=== PATIENT | male | born 1990 | race African-American/Black ===

== ENCOUNTER 2016-05-30 12:11 | Emergency (ER) | payer MEDICARE, OTHER, MEDICAID ==
[~2016-05-30] VITALS: Ht 177.8 cm; Wt 87.0 kg
[~2016-05-30 12:11] MED LIST: LEVA750T PO; OXYC1CAP PO
[2016-05-30 12:14] VITALS: BP 132/64; PULSE 78; RESP 15; TEMP 98.2; O2SAT 96
--- NOTE | 2016-05-30 12:18 | PD ---
Physical Exam Time Seen by Provider: 12:16 Narrative 26yo M w/ c/o sickle cell crisis. Onset Friday. Pain in BUE and BLE. Denies fever, vomiting. Patient stable. Patient seen in triage. Awaiting bed placement. Data Data Last Documented VS Vital Signs Date Time Temp Pulse Resp B/P Pulse Ox O2 Delivery O2 Flow Rate FiO2 05/30/16 12:14 98.2 78 15 132/64 96 MDM Supervised Visit with REG: Aleta Galo May 30, 2016 12:18
[2016-05-30 12:25] VITALS: BP 141/62; PULSE 77; RESP 18; O2SAT 95
[2016-05-30] MEDS ORDERED: SODIUM CHLOR 0.9% 1000 ML INJ 1,000 ML IV ONE ×2 (12:35→13:30)
--- NOTE | 2016-05-30 12:35 | PD ---
HPI Chief Complaint: Sickle Cell Time Seen by Provider: 12:35 Travel History International Travel<30 days: No Contact w/Intl Traveler<30days: No Traveled to known affect area: No History of Present Illness HPI 26-year-old male with history of sickle cell disease presents to emergency department for evaluation of what he is reporting as a sickle cell crisis. Patient states he has had joint and extremity pain for the last 2-3 days. Denies any fever or chills. No injury. No chest pain or tightness. No difficulty breathing. No abdominal pain, nausea, vomiting. He has no other symptoms to report. States this is typical of his sickle cell crisis. PFSH Past Medical History Hx Anticoagulant Therapy: No Asthma: No Blood Disorders: No Anxiety: No Depression: No Heart Rhythm Problems: No Cancer: No Cardiovascular Problems: No High Cholesterol: No Chemotherapy: No Chest Pain: No Congestive Heart Failure: No COPD: No Cerebrovascular Accident: No Diabetes: No Diminished Hearing: No Endocrine: No Gastrointestinal Disorders: No Genitourinary: No Heparin Induced Thrombocytopen: No Hypertension: No Immune Disorder: No Implanted Vascular Access Dvce: No Musculoskeletal: No Neurologic: No Psychiatric: No Reproductive: No Respiratory: No Immunizations Current: Yes Radiation Therapy: No Sickle Cell Disease: Yes Sleep Apnea: No Past Surgical History AICD: No Arteriovenous Shunt: No Hysterectomy: No Insulin Pump: No Joint Replacement: No Pacemaker: No Tonsillectomy: Yes Other Surgery: No Social History Alcohol Use: Yes (1-2 cups of liquor every other day ) Tobacco Use: No Substance Use: No Allergies-Medications (Allergen,Severity, Reaction): Coded Allergies: Penicillin (Verified Allergy, Severe, Hives, 05/30/16) Reported Meds & Prescriptions Reported Meds & Active Scripts Active Reported Oxycodone (Oxycodone HCl) 5 Mg Cap 5 Mg PO Q4H PRN Review of Systems Except as stated in HPI: all other systems reviewed are Neg Physical Exam Narrative GENERAL: Well-nourished male patient, ambulatory and in no acute distress SKIN: Focused skin assessment warm/dry. HEAD: Atraumatic. Normocephalic. EYES: Pupils equal and round. No scleral icterus. No injection or drainage. ENT: No nasal bleeding or discharge. Mucous membranes pink and moist. NECK: Trachea midline. No JVD. CARDIOVASCULAR: Regular rate and rhythm. No murmur appreciated. RESPIRATORY: No accessory muscle use. Clear to auscultation. Breath sounds equal bilaterally. GASTROINTESTINAL: Abdomen soft, non-tender, nondistended. Hepatic and splenic margins not palpable. MUSCULOSKELETAL: No obvious deformities. No clubbing. No cyanosis. No edema. NEUROLOGICAL: Awake and alert. No obvious cranial nerve deficits. Motor grossly within normal limits. Normal speech. PSYCHIATRIC: Appropriate mood and affect; insight and judgment normal. Data Data Last Documented VS Vital Signs Date Time Temp Pulse Resp B/P Pulse Ox O2 Delivery O2 Flow Rate FiO2 05/30/16 12:36 18 99 Room Air 05/30/16 12:25 77 141/62 05/30/16 12:14 98.2 Orders Basic Metabolic Panel (Bmp) (05/30/16 12:35) Complete Blood Count With Diff (05/30/16 12:35) Retic Count (05/30/16 12:35) Ecg Monitoring (05/30/16 12:35) Iv Access Insert/Monitor (05/30/16 12:35) Oximetry (05/30/16 12:35) Ketorolac Inj (Toradol Inj) (05/30/16 12:45) Sodium Chloride 0.9% Flush (Ns Flush) (05/30/16 12:45) Sodium Chlor 0.9% 1000 Ml Inj (Ns 1000 M (05/30/16 12:35) Hydromorphone Pf Inj (Dilaudid Pf Inj) (05/30/16 13:30) Diphenhydramine Inj (Benadryl Inj) (05/30/16 13:30) Sodium Chlor 0.9% 1000 Ml Inj (Ns 1000 M (05/30/16 13:30) Labs Laboratory Tests Test 05/30/16 12:43 White Blood Count 10.9 TH/MM3 Red Blood Count 4.64 MIL/MM3 Hemoglobin 10.9 GM/DL Hematocrit 31.7 % Mean Corpuscular Volume 68.3 FL Mean Corpuscular Hemoglobin 23.4 PG Mean Corpuscular Hemoglobin 34.3 % Concent Red Cell Distribution Width 25.9 % Platelet Count 344 TH/MM3 Mean Platelet Volume 9.4 FL Neutrophils (%) (Auto) % Lymphocytes (%) (Auto) % Monocytes (%) (Auto) % Eosinophils (%) (Auto) % Basophils (%) (Auto) % Neutrophils # (Auto) TH/MM3 Lymphocytes # (Auto) TH/MM3 Monocytes # (Auto) TH/MM3 Eosinophils # (Auto) TH/MM3 Basophils # (Auto) TH/MM3 CBC Comment AUTO DIFF Differential Total Cells 100 Counted Neutrophils % (Manual) 35 % Lymphocytes % 49 % Monocytes % 7 % Eosinophils % 8 % Basophils % 1 % Neutrophils # (Manual) 3.8 TH/MM3 Nucleated Red Blood Cells 3 /100 WBC Differential Comment FINAL DIFF MANUAL Platelet Estimate NORMAL Platelet Morphology Comment NORMAL Polychromasia 2.7 % Sickle Cells 2+ Target Cells 2+ Kirkpatrick-Rockleigh Bodies PRESENT Reticulocyte Count 7.1 % Absolute Reticulocyte Count 330.4 MIL/L Sodium Level 140 MEQ/L Potassium Level 4.9 MEQ/L Chloride Level 108 MEQ/L Carbon Dioxide Level 26.7 MEQ/L Anion Gap 5 MEQ/L Blood Urea Nitrogen 5 MG/DL Creatinine 0.77 MG/DL Estimat Glomerular Filtration 150 ML/MIN Rate Random Glucose 81 MG/DL Calcium Level 8.8 MG/DL MDM Medical Decision Making Medical Screen Exam Complete: Yes Emergency Medical Condition: Yes Medical Record Reviewed: Yes Differential Diagnosis Sickle cell disease versus sickle cell crisis versus viral syndrome versus osteoarthritis versus narcotic seeking Narrative Course 26-year-old male presents to emergency department for evaluation of extremity in joint pain. Patient appears without distress. His vital signs are stable. He is given IV fluids and Toradol. Patient calls me into the room and tells me that "they don't give me Toradol for my sickle cell. They usually give me Dilaudid." Review of the records, this is true. The patient is given Dilaudid nearly every visit that he comes to the emergency department. I requested the patient to wait until his fluids completed and his lab work resulted in to get the Toradol some time to work. Laboratory Tests Test 05/30/16 12:43 White Blood Count 10.9 TH/MM3 Red Blood Count 4.64 MIL/MM3 Hemoglobin 10.9 GM/DL Hematocrit 31.7 % Mean Corpuscular Volume 68.3 FL Mean Corpuscular Hemoglobin 23.4 PG Mean Corpuscular Hemoglobin 34.3 % Concent Red Cell Distribution Width 25.9 % Platelet Count 344 TH/MM3 Mean Platelet Volume 9.4 FL Neutrophils (%) (Auto) % Lymphocytes (%) (Auto) % Monocytes (%) (Auto) % Eosinophils (%) (Auto) % Basophils (%) (Auto) % Neutrophils # (Auto) TH/MM3 Lymphocytes # (Auto) TH/MM3 Monocytes # (Auto) TH/MM3 Eosinophils # (Auto) TH/MM3 Basophils # (Auto) TH/MM3 CBC Comment AUTO DIFF Differential Total Cells 100 Counted Neutrophils % (Manual) 35 % Lymphocytes % 49 % Monocytes % 7 % Eosinophils % 8 % Basophils % 1 % Neutrophils # (Manual) 3.8 TH/MM3 Nucleated Red Blood Cells 3 /100 WBC Differential Comment FINAL DIFF MANUAL Platelet Estimate NORMAL Platelet Morphology Comment NORMAL Polychromasia 2.7 % Sickle Cells 2+ Target Cells 2+ Kirkpatrick-Rockleigh Bodies PRESENT Reticulocyte Count 7.1 % Absolute Reticulocyte Count 330.4 MIL/L Sodium Level 140 MEQ/L Potassium Level 4.9 MEQ/L Chloride Level 108 MEQ/L Carbon Dioxide Level 26.7 MEQ/L Anion Gap 5 MEQ/L Blood Urea Nitrogen 5 MG/DL Creatinine 0.77 MG/DL Estimat Glomerular Filtration 150 ML/MIN Rate Random Glucose 81 MG/DL Calcium Level 8.8 MG/DL CBC is without acute concern. Absolute reticulocyte count is 330.4 which is elevated. The MP is without acute concern. Upon reassessment, patient states that his pain is still not controlled. He is given Dilaudid and Benadryl per my attending. Upon reassessment, patient is sleeping in the bed. He'll be discharged at this time. He'll not be given any additional prescription for pain control outpatient. While in the room, the patient contact his dietist and request pain medication refill and is instructed to come by the office and orange picker his prescription. Diagnosis Primary Impression: Sickle cell disease Qualified Code: D57.00 - Hb-SS disease with crisis Referrals: Primary Care Physician Patient Instructions: General Instructions, Sickle Cell Anemia (GEN) Departure Forms: Tests/Procedures, Work Release Enter return to work date: Jun 01, 2016 Additional Instructions: Maintain hydration Follow-up a primary care provider Return immediately with any acute worsening of symptoms Med/Other Pt SpecificInfo: Prescription(s) given Disposition: 01 DISCHARGE HOME Condition: Stable ChiangJane mccormick MCKENNA May 30, 2016 12:35
[2016-05-30 12:36] VITALS: RESP 18; O2SAT 99
[2016-05-30] MEDS ORDERED: SODIUM CHLORIDE 0.9% FLUSH 10 ML FLUSH IVF PRN (12:45)
[2016-05-30] MEDS ORDERED: KETOROLAC TROMETHAMINE 30 MG/ML (IVP) VIAL IVP ONE (12:45)
[2016-05-30 13:12] LABS: HEMATOCRIT 31.7 % (39.0-51.0); MEAN CELL VOLUME 68.3 FL (80.0-100.0); MEAN CORPUSCULAR HEMOGLOBIN 23.4 PG (27.0-34.0); MEAN CORPUSCULAR HGB CONC 34.3 % (32.0-36.0); PLATELET COUNT 344 TH/MM3 (150-450); RED BLOOD COUNT 4.64 MIL/MM3 (4.50-5.90); RED CELL DISTRIBUTION WIDTH 25.9 % (11.6-17.2); RETIC % 7.1 % (0.4-3.0); WHITE BLOOD COUNT 10.9 TH/MM3 (4.0-11.0)
[2016-05-30 13:14] LABS: HEMO FLAGS AUTO DIFF; REVIEW FLAG FINAL
[2016-05-30] MEDS ORDERED: HYDROmorphone HCL PF 1 MG/ML VIAL IV PUSH ONE (13:30)
[2016-05-30] MEDS ORDERED: diphenhydrAMINE HCL 50 MG/ML VIAL IV PUSH ONE (13:30)
[2016-05-30 13:35] LABS: BICARBONATE 26.7 MEQ/L (21.0-32.0)
[2016-05-30 13:36] LABS: POTASSIUM 4.9 MEQ/L (3.5-5.1)
[2016-05-30 13:41] LABS: BASOPHILS 1 % (0-2); CORRECTED NUCLEATED RBC 3 /100 WBC (0-0); EOSINOPHILS 8 % (0-4); NEUTROPHIL # MANUAL DIFF 3.8 TH/MM3 (1.8-7.7); POLYS (SEG NEUTROPHILS) 35 % (16-70); WBC DIFF SAMPLE 100
[2016-05-30 13:42] LABS: TARGET CELLS 2+ (NORMAL)
[2016-05-30 13:43] LABS: POLYCHROMASIA 2.7 % (0.0-1.9); SICKLE CELLS 2+ (NORMAL)
[2016-05-30 13:44] LABS: HOWELL-JOLLY BODIES PRESENT (NONE SEEN)
[2016-05-30 13:45] LABS: PLATELET ESTIMATE SMEAR NORMAL (NORMAL); PLATELET MORPHOLOGY NORMAL (NORMAL); SCAN/DIFF FINAL DIFF MANUAL
== END 2016-05-30 14:20 | disposition home or self-care (01) ==
LOC: NEPD 12:11
DX: D57.00 Hb-SS disease with crisis, unspecified (principal)
CPT/HCPCS: 80048; 85007; 85027; 85044; 96374; 96375; 99284; J1170; J1200; J1885; J7030

== ENCOUNTER 2016-08-07 20:19 | Emergency (ER) | payer MEDICARE, MEDICAID ==
[~2016-08-07] VITALS: Ht 177.8 cm; Wt 92.0 kg
[~2016-08-07 20:19] MED LIST changes: -LEVA750T PO
[2016-08-07 20:22] VITALS: BP 143/74; PULSE 87; RESP 16; TEMP 99; O2SAT 96
--- NOTE | 2016-08-07 20:28 | PD ---
Physical Exam Date Seen by Provider: Aug 07, 2016 Time Seen by Provider: 20:27 Narrative 26 yo male here for evaluation of cold like symptoms. Having sore throat, congestion and body aches. Going on for a week. Not improving. Taking OTC with no relief. no recent travel. Vitals are stable in triage. Awaiting bed placement. Data Data Last Documented VS Vital Signs Date Time Temp Pulse Resp B/P Pulse Ox O2 Delivery O2 Flow Rate FiO2 08/07/16 20:22 99.0 87 16 143/74 96 Room Air [facility] Medical Record Reviewed: Yes Supervised Visit with REG: Luis Johnson Aug 07, 2016 20:28
--- NOTE | 2016-08-07 20:38 | PD ---
HPI Chief Complaint: Cold / Flu Symptoms Time Seen by Provider: 20:35 Travel History International Travel<30 days: No Contact w/Intl Traveler<30days: No Traveled to known affect area: No History of Present Illness HPI 26-year-old black male presents to emergency department stating that he had told triage that he had cold symptoms. He states that actually he is here because he has had an STD exposure. His partner is tested positive for gonorrhea. He states that he does not feel well. He does not report having a discharge or any rashes or lesions. He denies any fever or chills. No nausea vomiting. No abdominal pain. PFSH Past Medical History Narrative Medical Sickle cell disease Hx Anticoagulant Therapy: No Asthma: No Blood Disorders: No Anxiety: No Depression: No Heart Rhythm Problems: No Cancer: No Cardiovascular Problems: No High Cholesterol: No Chemotherapy: No Chest Pain: No Congestive Heart Failure: No COPD: No Cerebrovascular Accident: No Diabetes: No Diminished Hearing: No Endocrine: No Gastrointestinal Disorders: No Genitourinary: No Heparin Induced Thrombocytopen: No Hypertension: No Immune Disorder: No Implanted Vascular Access Dvce: No Medical other: Yes (SICKLE CELL ) Musculoskeletal: No Neurologic: No Psychiatric: No Reproductive: No Respiratory: No Immunizations Current: Yes Radiation Therapy: No Sickle Cell Disease: Yes Sleep Apnea: No Past Surgical History Narrative Surgical Tonsillectomy AICD: No Arteriovenous Shunt: No Hysterectomy: No Insulin Pump: No Joint Replacement: No Pacemaker: No Tonsillectomy: Yes Other Surgery: No Social History Alcohol Use: Yes (1-2 cups of liquor every other day ) Tobacco Use: No Substance Use: No Allergies-Medications (Allergen,Severity, Reaction): Coded Allergies: Penicillin (Verified Allergy, Severe, Hives, 08/07/16) Reported Meds & Prescriptions Reported Meds & Active Scripts Active Reported Oxycodone (Oxycodone HCl) 5 Mg Cap 5 Mg PO Q4H PRN Review of Systems Except as stated in HPI: all other systems reviewed are Neg Physical Exam Narrative GENERAL: This is a well-nourished, well-developed patient, in no apparent distress. SKIN: No rashes, ecchymoses or lesions. Warm and dry. HEAD: Atraumatic. Normocephalic. EYES: PERRL, EOMI, no discharge or injection. No scleral icterus. EARS: Clear NOSE: Nasal turbinates appear normal. THROAT: Mucosa pink and moist. Airway patent. NECK: Trachea midline. supple, moves head freely. LUNGS: Clear to auscultation. CV: Regular in rhythm. ABDOMEN: Soft nontender. EXT: No clubbing cyanosis or edema. Data Data Last Documented VS Vital Signs Date Time Temp Pulse Resp B/P Pulse Ox O2 Delivery O2 Flow Rate FiO2 08/07/16 20:22 99.0 87 16 143/74 96 Room Air Orders Gc And Chlamydia Pcr (08/07/16 20:34) Azithromycin Powd Pack (Zithromax Powd P (08/07/16 20:45) Rocephin 250mg Vial Im X 1 (08/07/16 20:45) Lidocaine 1% Inj (50 Ml) (Xylocaine 1% I (08/07/16 20:45) MDM Medical Decision Making Medical Screen Exam Complete: Yes Emergency Medical Condition: Yes Medical Record Reviewed: Yes Differential Diagnosis MDM: Moderate Differential diagnoses: Chlamydia, gonorrhea, syphilis, chancroid, hepatitis, HIV, herpes Narrative Course Patient's given Rocephin 250 IM and Zithromax 1 g by mouth. This is an STD exposure Diagnosis Primary Impression: STD exposure Patient Instructions: General Instructions Additional Instructions: Rest. Partner notification. Follow-up with the [facility] Department for further STD testing such as HIV, syphilis and hepatitis. No intercourse until all partners treated. Always use a condom. Return to the ER if any problems. Med/Other Pt SpecificInfo: No Meds Exist/No RX given Disposition: 01 DISCHARGE HOME Condition: Stable Leo Yost Aug 07, 2016 20:38
[2016-08-07] MEDS ORDERED: LIDOCAINE HCL 1% 50 ML VIAL IM ONE (20:45)
[2016-08-07] MEDS ORDERED: AZITHROMYCIN PWD FOR SUSP 1 GM PACKET PO ONE (20:45)
[2016-08-07] MEDS ORDERED: cefTRIAXone 250 MG VIAL IM ONE (20:45)
[2016-08-07 23:43] LABS: CHLAMYDIA PCR NOT DETECTED (NOT DETECT)
[2016-08-07 23:44] LABS: NEISSERIA PCR NOT DETECTED (NOT DETECT)
== END 2016-08-07 21:01 | disposition home or self-care (01) ==
LOC: NEPK 20:19
DX: Z20.2 Contact with and (suspected) exposure to infections with a predominantly sexual mode of transmission (principal)
CPT/HCPCS: 87491; 87591; 96372; 99284; J0696

== ENCOUNTER 2017-02-05 03:17 | Emergency (ER) | payer MEDICARE, OTHER, MEDICAID ==
[~2017-02-05] VITALS: Ht 177.8 cm; Wt 86.0 kg
[2017-02-05 03:19] VITALS: BP 143/64; PULSE 59; RESP 16; TEMP 98; O2SAT 97
[2017-02-05 03:30] VITALS: BP 141/61; PULSE 56; RESP 16; O2SAT 96
[2017-02-05] MEDS ORDERED: SODIUM CHLOR 0.9% 1000 ML INJ 1,000 ML IV ONE (04:15)
[2017-02-05 04:26] LABS: HEMATOCRIT 28.2 % (39.0-51.0); HEMOGLOBIN 9.4 GM/DL (13.0-17.0); MEAN CELL VOLUME 74.4 FL (80.0-100.0); MEAN CORPUSCULAR HEMOGLOBIN 24.9 PG (27.0-34.0); MEAN CORPUSCULAR HGB CONC 33.5 % (32.0-36.0); MEAN PLATELET VOLUME 9.5 FL (7.0-11.0); PLATELET COUNT 294 TH/MM3 (150-450); RED BLOOD COUNT 3.79 MIL/MM3 (4.50-5.90); RED CELL DISTRIBUTION WIDTH 25.1 % (11.6-17.2); WHITE BLOOD COUNT 15.4 TH/MM3 (4.0-11.0)
[2017-02-05 04:35] LABS: RETIC # 276.6 MIL/L (20.0-150.0); RETIC % 7.3 % (0.4-3.0)
[2017-02-05 04:39] LABS: ALKALINE PHOSPHATASE 68 U/L (45-117); TOTAL BILIRUBIN ADULT 1.4 MG/DL (0.2-1.0); TOTAL PROTEIN 7.6 GM/DL (6.4-8.2)
[2017-02-05 04:40] LABS: ALBUMIN 4.1 GM/DL (3.4-5.0); ALT (GPT) 30 U/L (12-78); AST (GOT) 49 U/L (15-37); BICARBONATE 26.5 MEQ/L (21.0-32.0); BLOOD UREA NITROGEN 12 MG/DL (7-18); CALCIUM 8.8 MG/DL (8.5-10.1); CHLORIDE 107 MEQ/L (98-107); CREATININE 0.64 MG/DL (0.60-1.30); GLOMERULAR FILTRATION RATE 186 ML/MIN (>89); GLUCOSE,RANDOM 83 MG/DL (74-106); SODIUM (NA) 139 MEQ/L (136-145)
--- NOTE | 2017-02-05 04:44 | PD ---
HPI Chief Complaint: Headache Time Seen by Provider: 03:36 Travel History International Travel<30 days: No Contact w/Intl Traveler<30days: No Traveled to known affect area: No History of Present Illness HPI SCD PT WITH HEADACHE FOR THE LAST 10 DAYS . TOOK HIS NORMAL outpt PAIN MEDS WITHOUT RELIEF OF SYMPTOMS . mother told him to come to ER to make sure he isnt " stroking out". Pt usually has his crisis pain in his legs femoral condyles and lower back , He denies leg or back pain right now. PFSH Past Medical History Hx Anticoagulant Therapy: No Asthma: No Blood Disorders: No Anxiety: No Depression: No Heart Rhythm Problems: No Cancer: No Cardiovascular Problems: No High Cholesterol: No Chemotherapy: No Chest Pain: No Congestive Heart Failure: No COPD: No Cerebrovascular Accident: No Diabetes: No Diminished Hearing: No Endocrine: No Gastrointestinal Disorders: No Genitourinary: No Heparin Induced Thrombocytopen: No Hypertension: No Immune Disorder: No Implanted Vascular Access Dvce: No Musculoskeletal: No Neurologic: No Psychiatric: No Reproductive: No Respiratory: No Immunizations Current: Yes Radiation Therapy: No Sickle Cell Disease: Yes Sleep Apnea: No Past Surgical History AICD: No Arteriovenous Shunt: No Hysterectomy: No Insulin Pump: No Joint Replacement: No Pacemaker: No Tonsillectomy: Yes Other Surgery: No Social History Alcohol Use: Yes (1-2 cups of liquor every other day ) Tobacco Use: No Substance Use: No Allergies-Medications (Allergen,Severity, Reaction): Coded Allergies: penicillin G (Unverified Allergy, Severe, Hives, 02/05/17) Reported Meds & Prescriptions Reported Meds & Active Scripts Active Ibuprofen 600 Mg Tab 600 Mg PO Q6H PRN Reported Oxycodone (Oxycodone HCl) 5 Mg Cap 5 Mg PO Q4H PRN Physical Exam Narrative GENERAL: non toxic no scleral yellowing SKIN: Warm and dry. HEAD: Atraumatic. Normocephalic. EYES: Pupils equal and round. No scleral icterus. no yellowing to the eye . No injection or drainage. ENT: No nasal bleeding or discharge. Mucous membranes pink and moist. NECK: Trachea midline. No JVD. CARDIOVASCULAR: Regular rate and rhythm. RESPIRATORY: No accessory muscle use. Clear to auscultation. Breath sounds equal bilaterally. GASTROINTESTINAL: Abdomen soft, non-tender, nondistended. Hepatic and splenic margins not palpable. MUSCULOSKELETAL: Extremities without clubbing, cyanosis, or edema. No obvious deformities. NEUROLOGICAL: Awake and alert. No obvious cranial nerve deficits. Motor grossly within normal limits. Five out of 5 muscle strength in the arms and legs. Normal speech. PSYCHIATRIC: Appropriate mood and affect; insight and judgment normal. Data Data Last Documented VS Orders Orders Complete Blood Count With Diff (02/05/17 03:52) Comprehensive Metabolic Panel (02/05/17 03:52) Retic Count (02/05/17 03:52) Sodium Chlor 0.9% 1000 Ml Inj (Ns 1000 M (02/05/17 04:15) Ketorolac Inj (Toradol Inj) (02/05/17 04:45) Hydromorphone Pf Inj (Dilaudid Pf Inj) (02/05/17 04:45) Cta Brain W Iv Contrast W 3d (02/05/17 ) Cta Neck W Iv Contrast W 3d (02/05/17 ) Ct Brain W/O Iv Contrast(Rout) (02/05/17 ) Iohexol 350 Inj (Omnipaque 350 Inj) (02/05/17 05:26) Ed Discharge Order (02/05/17 06:24) Ed Discharge Order (02/05/17 06:24) Labs Laboratory Tests Test 02/05/17 04:00 White Blood Count 15.4 TH/MM3 Red Blood Count 3.79 MIL/MM3 Hemoglobin 9.4 GM/DL Hematocrit 28.2 % Mean Corpuscular Volume 74.4 FL Mean Corpuscular Hemoglobin 24.9 PG Mean Corpuscular Hemoglobin Concent 33.5 % Red Cell Distribution Width 25.1 % Platelet Count 294 TH/MM3 Mean Platelet Volume 9.5 FL CBC Comment AUTO DIFF Differential Total Cells Counted 100 Neutrophils % (Manual) 27 % Lymphocytes % 63 % Monocytes % 7 % Eosinophils % 3 % Neutrophils # (Manual) 4.2 TH/MM3 Nucleated Red Blood Cells 2 /100 WBC Differential Comment FINAL DIFF MANUAL Platelet Estimate NORMAL Platelet Morphology Comment NORMAL Polychromasia 7.0 % Sickle Cells 1+ Target Cells 1+ Ovalocytes Reticulocyte Count 7.3 % Absolute Reticulocyte Count 276.6 MIL/L Blood Urea Nitrogen 12 MG/DL Creatinine 0.64 MG/DL Random Glucose 83 MG/DL Total Protein 7.6 GM/DL Albumin 4.1 GM/DL Calcium Level 8.8 MG/DL Alkaline Phosphatase 68 U/L Aspartate Amino Transf (AST/SGOT) 49 U/L Alanine Aminotransferase (ALT/SGPT) 30 U/L Total Bilirubin 1.4 MG/DL Sodium Level 139 MEQ/L Potassium Level 3.9 MEQ/L Chloride Level 107 MEQ/L Carbon Dioxide Level 26.5 MEQ/L Anion Gap 6 MEQ/L Estimat Glomerular Filtration Rate 186 ML/MIN MDM Medical Decision Making Medical Screen Exam Complete: Yes Emergency Medical Condition: Yes Differential Diagnosis ischemic event headache vs tension or migraine , vs CVA hemorrhagic other , Narrative Course Toradol and morphine reports still having severe headache , I feel at this point with his SCD occlusion risk the risk benefit of CTA of neck and head is indicated , CTA returns completely normal . Pt is safe for discharge as his H and H is normal for SCD and retic count is not signifiacntly elevated and no juandice or laura bone pain Diagnosis Primary Impression: Headache Qualified Codes: G44.89 - Other headache syndrome Patient Instructions: Acute Headache (ED), General Instructions Scripts Ibuprofen (Ibuprofen) 600 Mg Tab 600 MG PO Q6H Y for Pain/Inflammation, #20 TAB 0 Refills Prov: Truman Junior MD 02/05/17 Disposition: DISCHARGE HOME Condition: Good Truman Junior MD Feb 05, 2017 04:44
[2017-02-05] MEDS ORDERED: KETOROLAC TROMETHAMINE 30 MG/ML (IVP) VIAL IV PUSH ONE (04:45)
[2017-02-05] MEDS ORDERED: HYDROmorphone HCL PF 2 MG/ML VIAL IV PUSH ONE (04:45)
[2017-02-05 05:08] LABS: CORRECTED NUCLEATED RBC 2 /100 WBC (0-0); LYMPHOCYTES 63 % (9-44); MONOCYTES 7 % (0-8); NEUTROPHIL # MANUAL DIFF 4.2 TH/MM3 (1.8-7.7); NUCLEATED RED BLOOD CELL 2 (0-0); POLYS (SEG NEUTROPHILS) 27 % (16-70)
[2017-02-05 05:10] LABS: SICKLE CELLS 1+ (NORMAL)
[2017-02-05 05:11] LABS: TARGET CELLS 1+ (NORMAL)
[2017-02-05] MEDS ORDERED: IOHEXOL 350 MG/ML 10 ML VIAL (for RAD DIAG) IVCONTRAST ONE (05:26)
--- NOTE | 2017-02-05 05:33 | RADRPT ---
EXAM DATE/TIME: 02/05/2017 05:05 [facility] COMPARISON: No previous studies available for comparison. INDICATIONS : Cephalgia. RADIATION DOSE: 56.35 CTDIvol (mGy) MEDICAL HISTORY : Sickle cell disease. SURGICAL HISTORY : None. ENCOUNTER: Initial ACUITY: 2 weeks PAIN SCALE: 7/10 LOCATION: cranial TECHNIQUE: Multiple contiguous axial images were obtained of the head. Using automated exposure control and adjustment of the mA and/or kV according to patient size, radiation dose was kept as low as reasonably achievable to obtain optimal diagnostic quality images. DICOM format image data is av ailable electronically for review and comparison. FINDINGS: There is no evidence for intracranial hemorrhage, mass effect, mass lesions, edema, or extra-axial fl uid collections. The visualized bony structures appear intact. The ventricles are normal size for t he patient's age. There are no signs of acute infarction for technique. CONCLUSION: Unremarkable study. Karsten Braswell MD on February 05, 2017 at 5:31 Board Certified Radiologist. This report was verified electronically.
--- NOTE | 2017-02-05 05:40 | RADRPT ---
EXAM DATE/TIME: 02/05/2017 05:05 [facility] COMPARISON: CT BRAIN W/O CONTRAST, February 05, 2017, 5:05. INDICATIONS : Cephalgia. IV CONTRAST: 75 cc Omnipaque 350 (iohexol) IV ; Cumulative dose for multiple exams. RADIATION DOSE: 16.35 CTDIvol (mGy) ; Combined studies MEDICAL HISTORY : Sickle cell disease. SURGICAL HISTORY : None. ENCOUNTER: Initial ACUITY: 2 weeks PAIN SCALE: 5/10 LOCATION: cranial TECHNIQUE: Volumetric scanning was performed using a multi-row detector CT scanner. The data was post processed with a variety of visualization algorithms including full volume maximum intensity projection, multi -planar sliding thin slab reformation, curved planar reformation, and surface rendering techniques. Using automated exposure control and adjustment of the mA and/or kV according to patient size, radiat ion dose was kept as low as reasonably achievable to obtain optimal diagnostic quality images. DICO M format image data is available electronically for review and comparison. FINDINGS: There is excellent visualization of the major intracranial arteries out to the second-order branch ve ssels. There is no evidence for aneurysm, vessel truncation or stenosis, and no evidence for vascula r malformation. CONCLUSION: Normal examination. Karsten Braswell MD on February 05, 2017 at 5:38 Board Certified Radiologist. This report was verified electronically.
--- NOTE | 2017-02-05 06:13 | RADRPT ---
EXAM DATE/TIME: 02/05/2017 05:04 [facility] COMPARISON: No previous studies available for comparison. INDICATIONS : Cephalgia. IV CONTRAST: 75 cc Omnipaque 350 (iohexol) IV ; Cumulative dose for multiple exams. RADIATION DOSE: 16.23 CTDIvol (mGy) ; Combined studies MEDICAL HISTORY : Sickle cell disease. SURGICAL HISTORY : None. ENCOUNTER: Initial ACUITY: 1 day PAIN SCALE: 5/10 LOCATION: Bilateral neck Elevated flow velocities and ICA/CCA ratios have been found to correlate with increased degrees of vessel stenosis, calculated as percentage of diameter relative to a normal segment of distal ICA/CCA. TECHNIQUE: Volumetric scanning was performed using a multirow detector CT scanner. The data was post processed with a variety of visualization algorithms including full-volume maximum intensity projection, multip lanar sliding thin-slab reformation, curved-planar reformation, and surface-rendering techniques. Us ing automated exposure control and adjustment of the mA and/or kV according to patient size, radiatio n dose was kept as low as reasonably achievable to obtain optimal diagnostic quality images. DICOM f ormat image data is available electronically for review and comparison. FINDINGS: AORTIC ARCH: There is a three-vessel origin of the great vessels from the aorta. No evidence of ostial narrowing. RIGHT CAROTID: The common carotid artery is intact. The carotid bulb has a normal configuration without ulceration o r narrowing. The internal carotid artery lumen is smooth without stenosis. The external carotid myranda ry is intact. LEFT CAROTID: The common carotid artery is intact. The carotid bulb has a normal configuration without ulceration or narrowing. The internal carotid artery lumen is smooth without stenosis. The external carotid ar manny is intact. VERTEBRALS: The vertebral arteries have a symmetric diameter. No stenotic lesions are seen. CONCLUSION: Normal examination. Karsten Braswell MD on February 05, 2017 at 6:11 Board Certified Radiologist. This report was verified electronically.
[2017-02-05] MEDS ORDERED: IBUP-232 PO (06:41)
== END 2017-02-05 06:57 | disposition home or self-care (01) ==
LOC: NEPC 03:17
DX: G44.89 Other headache syndrome (principal)
CPT/HCPCS: 70450; 70496; 70498; 80053; 85007; 85027; 85044; 96374; 96375; 99285; J1170; J1885; J7030; Q9967

== ENCOUNTER 2017-04-13 04:38 | Emergency (ER) | payer MEDICARE, OTHER, MEDICAID ==
[~2017-04-13] VITALS: Ht 180.3 cm; Wt 86.0 kg
[~2017-04-13 04:38] MED LIST changes: +IBUP-232 PO
[2017-04-13 04:43] VITALS: BP 162/70; PULSE 91; RESP 16; TEMP 99.5; O2SAT 97
[2017-04-13] MEDS ORDERED: AZITHROMYCIN 250 MG TAB PO ONE (05:00)
[2017-04-13] MEDS ORDERED: IBUPROFEN 800 MG TAB PO ONE (05:00)
[2017-04-13] MEDS ORDERED: ZITH250T PO (05:01)
--- NOTE | 2017-04-13 05:03 | PD ---
HPI Chief Complaint: Fever Time Seen by Provider: 04:57 Travel History International Travel<30 days: No Contact w/Intl Traveler<30days: No Traveled to known affect area: No History of Present Illness HPI 26-year-old black male with a history of sickle cell presents emergency department with complaints of fever. He states that he has not taken anything for as of yet. He felt as if he was running high fever. He has had some general malaise. Denies any earache, sore throat, cough, congestion, nausea, vomiting or abdominal pain or diarrhea. PFSH Past Medical History Narrative Medical Sickle cell Hx Anticoagulant Therapy: No Asthma: No Blood Disorders: No Anxiety: No Depression: No Heart Rhythm Problems: No Cancer: No Cardiovascular Problems: No High Cholesterol: No Chemotherapy: No Chest Pain: No Congestive Heart Failure: No COPD: No Cerebrovascular Accident: No Diabetes: No Diminished Hearing: No Endocrine: No Gastrointestinal Disorders: No Genitourinary: No Heparin Induced Thrombocytopen: No Hypertension: No Immune Disorder: No Implanted Vascular Access Dvce: No Musculoskeletal: No Neurologic: No Psychiatric: No Reproductive: No Respiratory: No Immunizations Current: Yes Radiation Therapy: No Sickle Cell Disease: Yes Sleep Apnea: No Tetanus Vaccination: < 5 Years Influenza Vaccination: No Past Surgical History AICD: No Arteriovenous Shunt: No Hysterectomy: No Insulin Pump: No Joint Replacement: No Pacemaker: No Tonsillectomy: Yes Other Surgery: No Social History Alcohol Use: Yes (1-2 cups of liquor every other day ) Tobacco Use: No Substance Use: No Allergies-Medications (Allergen,Severity, Reaction): Coded Allergies: penicillin G (Unverified Allergy, Severe, Hives, 02/05/17) Reported Meds & Prescriptions Reported Meds & Active Scripts Active Ibuprofen 600 Mg Tab 600 Mg PO Q6H PRN Reported Oxycodone (Oxycodone HCl) 5 Mg Cap 5 Mg PO Q4H PRN Review of Systems Except as stated in HPI: all other systems reviewed are Neg Physical Exam Narrative GENERAL: Well-developed, well-nourished in no acute distress. Nontoxic appearing. HEAD: Normocephalic, atraumatic. EYES: Pupils equal round and reactive. Extraocular motions intact. No scleral icterus. No injection or drainage. ENT: TMs clear without erythema. The external auditory canals clear. Nose: clear . Posterior pharynx is pink and moist. No tonsillar edema or exudate. Uvula midline. Airway patent. NECK: Trachea midline.Supple, nontender, moves head freely. No central bony tenderness or spasm. CARDIOVASCULAR: Regular rate and rhythm without murmurs, gallops, or rubs. RESPIRATORY: Clear to auscultation. Breath sounds equal bilaterally. No wheezes , rales, or rhonchi. GASTROINTESTINAL: Abdomen soft, non-tender, nondistended. No hepato-splenomegaly , or palpable masses. No guarding. EXTREMITIES: No clubbing, cyanosis, or edema. No joint tenderness, effusion, or edema noted. BACK: Nontender without deformity or crepitance. No flank tenderness. Data Data Last Documented VS Vital Signs Date Time Temp Pulse Resp B/P (MAP) Pulse Ox O2 Delivery O2 Flow Rate FiO2 04/13/17 04:43 99.5 91 16 162/70 (100) 97 Orders Orders Ibuprofen (Motrin) (04/13/17 05:00) Azithromycin (Zithromax) (04/13/17 05:00) Ed Discharge Order (04/13/17 04:59) MDM Medical Decision Making Medical Screen Exam Complete: Yes Emergency Medical Condition: Yes Medical Record Reviewed: Yes Differential Diagnosis MDM: High Differential diagnoses: Pneumonia, bronchitis, URI, asthma, RAD, legionnaire's disease, SARS, ARDS, influenza, bronchiolitis, RSV,PE,CHF Narrative Course This is URI Patient was given Zithromax 500 mg p.o., Motrin 800 mg p.o. Diagnosis Primary Impression: URI Patient Instructions: General Instructions Departure Forms: Tests/Procedures, Work Release Special Instructions: No work 2 days Additional Instructions: Rest. Increase fluids. Tylenol and Advil. Robitussin-DM. Zithromax Followup with your Dr. in 2-3 days. Return to the ER for any problems. Med/Other Pt SpecificInfo: Prescription(s) given Scripts Azithromycin (Zithromax) 250 Mg Tab 250 MG PO DIRECTED for Infection, #6 TAB 0 Refills Take 2 tabs (500 mg) on day 1 then 1 tab daily x 4 days. Prov: Abraham Bond MD 04/13/17 Disposition: 01 DISCHARGE HOME Condition: Stable Leo Yost Apr 13, 2017 05:03
== END 2017-04-13 05:14 | disposition home or self-care (01) ==
LOC: NEPD 04:38
DX: J06.9 Acute upper respiratory infection, unspecified (principal)
CPT/HCPCS: 99283

== ENCOUNTER 2017-06-24 05:53 | Emergency (ER) | payer MEDICARE, OTHER, MEDICAID ==
[~2017-06-24 05:53] MED LIST changes: +ZITH250T PO
[2017-06-24 05:56] VITALS: BP 172/76; PULSE 64; RESP 18; TEMP 97.4; O2SAT 98
[2017-06-24 06:06] VITALS: BP 145/68; PULSE 65; RESP 22; O2SAT 99
[2017-06-24] MEDS ORDERED: SODIUM CHLOR 0.9% 1000 ML INJ 1,000 ML IV ONE (06:08)
[2017-06-24] MEDS ORDERED: PROCHLORPERAZINE INJ 10 MG/2 ML VIAL IV PUSH ONE (06:15)
[2017-06-24] MEDS ORDERED: MORPHINE SULFATE 8 MG/ML INJ IV PUSH ONE (06:15)
[2017-06-24] MEDS ORDERED: SODIUM CHLORIDE 0.9% FLUSH 10 ML FLUSH IVF PRN (06:15)
--- NOTE | 2017-06-24 06:23 | PD ---
HPI Chief Complaint: Sickle Cell Time Seen by Provider: 06:06 Travel History International Travel<30 days: No Contact w/Intl Traveler<30days: No Traveled to known affect area: No History of Present Illness HPI The patient is a 27 year old male who presents to the [facility] emergency department with a history of awakening from sound sleep with central chest pain and back pain. He reports that he has a history of sickle cell anemia. He reports that he has not had any recent pain crises. Reports that he does have oxycodone that he takes as needed for pain. He reports that he took 10 mg prior to arrival. His subassemblies wirer is Dr. Sosa. He denies having any shortness of breath. He denies having any known recent fevers or chills. He denies having any cough or congestion. On review of systems otherwise, the patient denies having any neck pain, abdominal pain, vomiting, diarrhea, urinary symptoms, or neurologic symptoms. PFSH Past Medical History Narrative Medical The patient's past medical history is significant for sickle cell anemia. Hx Anticoagulant Therapy: No Asthma: No Blood Disorders: No Anxiety: No Depression: No Heart Rhythm Problems: No Cancer: No Cardiovascular Problems: No High Cholesterol: No Chemotherapy: No Chest Pain: No Congestive Heart Failure: No COPD: No Cerebrovascular Accident: No Diabetes: No Diminished Hearing: No Endocrine: No Gastrointestinal Disorders: No Genitourinary: No Heparin Induced Thrombocytopen: No Hypertension: No Immune Disorder: No Implanted Vascular Access Dvce: No Musculoskeletal: No Neurologic: No Psychiatric: No Reproductive: No Respiratory: No Immunizations Current: Yes Radiation Therapy: No Sickle Cell Disease: Yes Sleep Apnea: No Past Surgical History Narrative Surgical The patient's past surgical history is significant for tonsillectomy AICD: No Arteriovenous Shunt: No Hysterectomy: No Insulin Pump: No Joint Replacement: No Pacemaker: No Tonsillectomy: Yes Other Surgery: No Social History Alcohol Use: Yes (1-2 cups of liquor every other day ) Tobacco Use: No Substance Use: No Allergies-Medications (Allergen,Severity, Reaction): Coded Allergies: penicillin G (Unverified Allergy, Severe, Hives, 06/24/17) Reported Meds & Prescriptions Reported Meds & Active Scripts Active Reported Oxycodone (Oxycodone HCl) 5 Mg Cap 5 Mg PO Q4H PRN Review of Systems Except as stated in HPI: all other systems reviewed are Neg General / Constitutional: No: Fever Eyes: No: Visual changes HENT: No: Headaches Cardiovascular: Positive: Chest Pain or Discomfort Respiratory: No: Shortness of Breath Gastrointestinal: No: Abdominal Pain Genitourinary: No: Dysuria Musculoskeletal: Positive: Myalgias, No: Pain Skin: No Rash Neurologic: No: Weakness, Focal Abnormalities, Change in Mentation, Slurred Speech, Sensory Disturbance Psychiatric: No: Depression Endocrine: No: Polydipsia Hematologic/Lymphatic: No: Easy Bruising Physical Exam Narrative General: The patient is a well-developed well-nourished male, uncomfortable appearing on arrival, writhing around in the bed, tearful related to pain Head and Neck exam: Head is normocephalic atraumatic. Eyes: EOMI, pupils are equal round and reactive to light. Nose: Midline septum with pink mucous membranes Mouth: Dentition unremarkable. Moist mucus membranes. Posterior oropharynx is not erythematous. No tonsillar hypertrophy. Uvula midline. Airway patent. Neck: No palpable lymphadenopathy. No nuchal rigidity. No thyromegaly. Cardiovascular: Regular rate and rhythm without murmurs, gallops, or rubs. No pulse deficit to the extremities on simultaneous auscultation and palpation of his radial artery. Lungs: Clear to auscultation bilaterally. No wheezes, rhonchi, or rales. No chest wall tenderness on palpation. No step-off or crepitus. No erythema or ecchymosis. Abdomen: Soft, without tenderness to palpation in all 4 quadrants of the abdomen. No guarding, rebound, or rigidity. Normal bowel sounds are audible. No tenderness on palpation of McBurney's point. Negative Christiansen sign. Extremities: No clubbing, cyanosis, or edema. 2+ pulses in all 4 extremities. No calf tenderness on palpation. Back: No spinous process tenderness to palpation. No costovertebral angle tenderness to palpation. Neurologic Exam: Grossly nonfocal. Skin Exam: No rash noted. Intact skin that is warm and dry. Data Data Last Documented VS Vital Signs Date Time Temp Pulse Resp B/P (MAP) Pulse Ox O2 Delivery O2 Flow Rate FiO2 06/24/17 06:38 92 Room Air 06/24/17 06:38 2.00 06/24/17 06:06 65 22 5/15/18 05:56 97.4 Orders Orders C-Reactive Protein (Crp) (06/24/17 06:08) Complete Blood Count With Diff (06/24/17 06:08) Comprehensive Metabolic Panel (06/24/17 06:08) Retic Count (06/24/17 06:08) Urinalysis - C+S If Indicated (06/24/17 06:08) Chest, Single Ap (06/24/17 06:08) Ecg Monitoring (06/24/17 06:08) Iv Access Insert/Monitor (06/24/17 06:08) Oximetry (06/24/17 06:08) Oxygen Administration (06/24/17 06:08) Sodium Chloride 0.9% Flush (Ns Flush) (06/24/17 06:15) Sodium Chlor 0.9% 1000 Ml Inj (Ns 1000 M (06/24/17 06:08) Creatine Kinase (Cpk) (06/24/17 06:08) Ckmb (Isoenzyme) Profile (06/24/17 06:08) Troponin I (06/24/17 06:08) Morphine Inj (Morphine Inj) (06/24/17 06:15) Prochlorperazine Inj (Compazine Inj) (06/24/17 06:15) Hydromorphone Pf Inj (Dilaudid Pf Inj) (06/24/17 06:30) Hydromorphone Pf Inj (Dilaudid Pf Inj) (06/24/17 06:45) Labs Laboratory Tests Test 06/24/17 06:10 White Blood Count 17.5 TH/MM3 Red Blood Count 4.34 MIL/MM3 Hemoglobin 10.6 GM/DL Hematocrit 30.0 % Mean Corpuscular Volume 69.0 FL Mean Corpuscular Hemoglobin 24.4 PG Mean Corpuscular Hemoglobin Concent 35.3 % Red Cell Distribution Width 27.4 % Platelet Count 345 TH/MM3 Mean Platelet Volume 9.1 FL CBC Comment AUTO DIFF Reticulocyte Count 5.8 % Absolute Reticulocyte Count 251.5 MIL/L MDM Medical Decision Making Medical Screen Exam Complete: Yes Emergency Medical Condition: Yes Medical Record Reviewed: Yes Differential Diagnosis Sickle cell pain crisis, versus acute chest syndrome, versus pneumonia, versus acute coronary syndrome Narrative Course During the course of the patient's emergency department visit, the patient's history, examination, and differential diagnosis were reviewed with the patient. The patient was placed on a monitor worker with oximetry and frequent blood pressure monitoring. The patient had IV access obtained and blood work sent for analysis. The patient had an EKG done on arrival. The EKG shows a sinus rhythm heart rate of 86, QRS duration 97 ms, QTC [address] segment elevation is noted. Baseline is tremulous as the patient is having difficulty lying still, which could be impacting interpretation. T waves are inverted in lead III. The patient was initially provided normal saline IV fluids 1 L bolus, 2 L nasal cannula O2 to prevent further sickling, morphine 5 mg IV for pain, Compazine 5 mg IV for nausea. The patient on reassessment continued to have pain and was given Dilaudid 1 mg IV. On repeat evaluation his pain was better controlled. The patient's laboratory studies were reviewed and remarkable for a white count of 17.5, hemoglobin 10.6, platelets 345 with a reticulocyte count of 5.8, chemistries are pending including cardiac enzymes. Radiology studies were reviewed and remarkable for a chest x-ray that shows cardiomegaly, no other acute findings. The patient's case will be checked out to the oncoming emergency physician to disposition the patient based on the conclusion of his workup. Diagnosis Primary Impression: Sickle cell crisis Courtney Diego MD June 24, 2017 06:23
[2017-06-24 06:27] LABS: HEMOGLOBIN 10.6 GM/DL (13.0-17.0); MEAN CORPUSCULAR HEMOGLOBIN 24.4 PG (27.0-34.0); MEAN CORPUSCULAR HGB CONC 35.3 % (32.0-36.0); MEAN PLATELET VOLUME 9.1 FL (7.0-11.0); PLATELET COUNT 345 TH/MM3 (150-450); RED BLOOD COUNT 4.34 MIL/MM3 (4.50-5.90); RED CELL DISTRIBUTION WIDTH 27.4 % (11.6-17.2); RETIC # 251.5 MIL/L (20.0-150.0); RETIC % 5.8 % (0.4-3.0); WHITE BLOOD COUNT 17.5 TH/MM3 (4.0-11.0)
[2017-06-24] MEDS ORDERED: HYDROmorphone HCL PF 1 MG/ML VIAL IV PUSH ONE (06:30)
--- NOTE | 2017-06-24 06:30 | RADRPT ---
EXAM DATE/TIME: 06/24/2017 06:13 [facility] COMPARISON: CHEST SINGLE AP, April 16, 2015, 19:39. INDICATIONS : Chest pain. MEDICAL HISTORY : Sickle cell disease. SURGICAL HISTORY : None. ENCOUNTER: Initial ACUITY: 1 day PAIN SCORE: 7/10 LOCATION: Bilateral chest FINDINGS: A single view of the chest demonstrates the lungs to be symmetrically aerated without evidence of mas s, infiltrate or effusion. The cardiomediastinal contours are prominent but stable. Osseous structu res are intact. CONCLUSION: 1. Cardiomegaly. No acute findings. Leo Davis MD on June 24, 2017 at 6:28 Board Certified Radiologist. This report was verified electronically.
[2017-06-24 06:38] VITALS: O2SAT 98
[2017-06-24] MEDS ORDERED: HYDROmorphone HCL PF 2 MG/ML VIAL IV PUSH ONE (06:45)
[2017-06-24 07:01] LABS: BLOOD UREA NITROGEN 8 MG/DL (7-18)
[2017-06-24 07:02] LABS: ALBUMIN 4.1 GM/DL (3.4-5.0); ALKALINE PHOSPHATASE 80 U/L (45-117); ALT (GPT) 63 U/L (12-78); AST (GOT) 70 U/L (15-37); BICARBONATE 20.9 MEQ/L (21.0-32.0); C-REACTIVE PROTEIN 0.63 MG/DL (0.00-0.30); CHLORIDE 108 MEQ/L (98-107); CREATININE 0.88 MG/DL (0.60-1.30); GLOMERULAR FILTRATION RATE 128 ML/MIN (>89); GLUCOSE,RANDOM 94 MG/DL (74-106); SODIUM (NA) 140 MEQ/L (136-145); TOTAL BILIRUBIN ADULT 1.5 MG/DL (0.2-1.0); TOTAL PROTEIN 8.2 GM/DL (6.4-8.2); TROPONIN I LESS THAN 0.02 NG/ML (0.02-0.05)
[2017-06-24 07:22] VITALS: BP 154/76; PULSE 62; RESP 18; TEMP 97.5; O2SAT 97
--- NOTE | 2017-06-24 07:30 | PD ---
Physical Exam Narrative Received sign out from Dr. Diego to reassess patient and if ok then d/c. Patient advises that eh feels much better and is ready to go "because I gotta go to work this morning." States that he took his last pain med this morning. Will give patient one day supply and have him followup with tap puller for more meds and reassessment. Data Data Last Documented VS Vital Signs Date Time Temp Pulse Resp B/P (MAP) Pulse Ox O2 Delivery O2 Flow Rate FiO2 06/24/17 07:22 97.5 62 18 154/76 (102) 97 Room Air 06/24/17 06:38 2.00 Orders Orders C-Reactive Protein (Crp) (06/24/17 06:08) Complete Blood Count With Diff (06/24/17 06:08) Comprehensive Metabolic Panel (06/24/17 06:08) Retic Count (06/24/17 06:08) Urinalysis - C+S If Indicated (06/24/17 06:08) Chest, Single Ap (06/24/17 06:08) Ecg Monitoring (06/24/17 06:08) Iv Access Insert/Monitor (06/24/17 06:08) Oximetry (06/24/17 06:08) Oxygen Administration (06/24/17 06:08) Sodium Chloride 0.9% Flush (Ns Flush) (06/24/17 06:15) Sodium Chlor 0.9% 1000 Ml Inj (Ns 1000 M (06/24/17 06:08) Creatine Kinase (Cpk) (06/24/17 06:08) Ckmb (Isoenzyme) Profile (06/24/17 06:08) Troponin I (06/24/17 06:08) Morphine Inj (Morphine Inj) (06/24/17 06:15) Prochlorperazine Inj (Compazine Inj) (06/24/17 06:15) Hydromorphone Pf Inj (Dilaudid Pf Inj) (06/24/17 06:30) Hydromorphone Pf Inj (Dilaudid Pf Inj) (06/24/17 06:45) CKMB (06/24/17 06:10) CKMB% (06/24/17 06:10) Electrocardiogram (06/24/17 06:08) Labs Laboratory Tests Test 06/24/17 06:10 White Blood Count 17.5 TH/MM3 Red Blood Count 4.34 MIL/MM3 Hemoglobin 10.6 GM/DL Hematocrit 30.0 % Mean Corpuscular Volume 69.0 FL Mean Corpuscular Hemoglobin 24.4 PG Mean Corpuscular Hemoglobin Concent 35.3 % Red Cell Distribution Width 27.4 % Platelet Count 345 TH/MM3 Mean Platelet Volume 9.1 FL CBC Comment AUTO DIFF Reticulocyte Count 5.8 % Absolute Reticulocyte Count 251.5 MIL/L Blood Urea Nitrogen 8 MG/DL Creatinine 0.88 MG/DL Random Glucose 94 MG/DL Total Protein 8.2 GM/DL Albumin 4.1 GM/DL Calcium Level 9.0 MG/DL Alkaline Phosphatase 80 U/L Aspartate Amino Transf (AST/SGOT) 70 U/L Alanine Aminotransferase (ALT/SGPT) 63 U/L Total Bilirubin 1.5 MG/DL Sodium Level 140 MEQ/L Potassium Level 4.5 MEQ/L Chloride Level 108 MEQ/L Carbon Dioxide Level 20.9 MEQ/L Anion Gap 11 MEQ/L Estimat Glomerular Filtration Rate 128 ML/MIN Total Creatine Kinase 232 U/L Troponin I LESS THAN 0.02 NG/ML C-Reactive Protein 0.63 MG/DL [facility] Supervised Visit with REG: No Diagnosis Primary Impression: Sickle cell crisis Patient Instructions: General Instructions, Narcotic given in the ED, Sickle Cell Crisis (ED) Additional Instruction: 1. Meds as directed. 2. Followup with tap puller in 24-48 hours for pain med refill and reassessment. 3. Return to ER immediately for fever, shortness of breath, chest pain, or for any new/worrisome/worsening symptoms. Med/Other Pt SpecificInfo: Prescription(s) given Scripts Oxycodone-Acetaminophen (Percocet) 10-325 mg Tab 1 TAB PO Q6H Y for PAIN for 1 Day, #4 TAB 0 Refills Prov: Ginny Hogan MD 06/24/17 Disposition: 01 DISCHARGE HOME Condition: Stable Ginny Hogan MD June 24, 2017 07:30
[2017-06-24] MEDS ORDERED: PERC10TA27 PO (07:31)
[2017-06-24 07:46] VITALS: BP 150/77; TEMP 97.6
[2017-06-24 07:54] LABS: CORRECTED NUCLEATED RBC 6 /100 WBC (0-0); LYMPHOCYTES 59 % (9-44); MONOCYTES 6 % (0-8); MYELOCYTES 1 % (0-0); NUCLEATED RED BLOOD CELL 6 (0-0); POLYS (SEG NEUTROPHILS) 33 % (16-70)
[2017-06-24 07:55] LABS: HOWELL-JOLLY BODIES PRESENT (NONE SEEN); SICKLE CELLS 1+ (NORMAL); TARGET CELLS 1+ (NORMAL)
[2017-06-24 07:56] LABS: OVALOCYTES 1+ (NORMAL); POLYCHROMASIA 2.6 % (0.0-1.9)
--- NOTE | 2017-06-24 18:08 | EKG ---
Date Performed: 06/24/2017 Time Performed: 06:08:58 PTAGE: 27 years EKG: Sinus rhythm NORMAL ECG PREVIOUS TRACING 04/14/15 @07.27 DOCTOR: Joelle Vences Interpretating Date/Time 06/24/2017 18:07:48
== END 2017-06-24 07:48 | disposition home or self-care (01) ==
LOC: NEPE 05:53
DX: D57.00 Hb-SS disease with crisis, unspecified (principal)
CPT/HCPCS: 71045; 80053; 82550; 82552; 84484; 85007; 85027; 85044; 86140; 93005; 96361; 96374; 96375; 99285; J0780; J1170; J2270; J7030